=== PATIENT | male | born 1975 | race Caucasian/White ===

== ENCOUNTER → 2017-11-27 | Outpatient (CLI) | payer OTHER ==
--- NOTE | 2017-12-01 12:29 | CPEEG ---
DATE OF STUDY: INTERPRETATION: Normal EEG during wakefulness and sleep. There were no potentially epileptogenic ab normalities present during the recording. REPORT: This EEG contains 10 Hz alpha activity over the posterior head regions. There was no abnorm al activation at rest, photic stimulation, or hyperventilation. The patient became drowsy and fell a sleep briefly during the study. There was no abnormal activation during drowsiness, brief sleep, or during times of arousal. Copy requested to: Dr. Gan /[id number]/MODL
== END ==
LOC: FCPNEURO 07:56
PROVIDERS: ATTEND Psychiatry & Neurology Clinical Neurophysiology
DX: R41.0 Disorientation, unspecified (principal); R47.9 Unspecified speech disturbances

== ENCOUNTER → 2017-12-05 | Outpatient (CLI) | payer OTHER ==
--- NOTE | 2017-12-06 08:13 | CPEEG ---
DATE OF STUDY: 12/05/2017 INTERPRETATION: Normal EEG during wakefulness and brief sleep. There were no potentially epileptoge braydon abnormalities present in the recording. REPORT: This EEG contains 10 Hz alpha activity to the posterior head regions. There was no abnormal activation at rest, during photic stimulation or hyperventilation. The patient became intermittentl y drowsy and fell into light sleep during the study. There was no abnormal activation during drowsin ess, sleep, or during times of arousal. /[id number]/MODL
== END ==
LOC: FCPNEURO 13:58
PROVIDERS: ATTEND Psychiatry & Neurology Neurology
DX: G43.119 Migraine with aura, intractable, without status migrainosus (principal)